=== PATIENT | female | born 1995 | race Caucasian/White ===

== ENCOUNTER 2016-12-08 13:12 | Emergency (ER) | payer BC, OTHER ==
[~2016-12-08] VITALS: Ht 167.6 cm; Wt 55.2 kg
[~2016-12-08 13:12] MED LIST: BCPILLS PO
[2016-12-08 13:18] VITALS: TEMP 37; Ht 167.6 cm; Wt 55.2 kg
--- NOTE | 2016-12-08 13:50 | EMERGENCY ROOM VISIT NOTE ---
ED Visit Note First contact with patient: 13:39 CHIEF COMPLAINT: Right fourth finger injury HISTORY OF PRESENT ILLNESS: This 21-year-old female patient presented to the emergency department ambulatory after they injured the right fourth finger when it got closed in a door last night around 11 PM. There was no audible snap or crack at that time. The patient rates the pain as sharp and 2/10. The patient denies any numbness or tingling. The patient does not have injuries to the wrist. Normal range of motion of the wrist. The patient has not had an injury to this hand before. REVIEW OF SYSTEMS: A 6 system review of systems was completed with positives and pertinent negatives in the HPI. ALLERGIES: Iodinated contrast media MEDICATIONS: Singulair PMH: Asthma and allergies SOCIAL HISTORY: The patient is a student. She does not smoke PHYSICAL EXAM: Vital Signs: Reviewed Nurse's notes, vital signs stable. GENERAL : This is a 21-year-old female, in no acute distress, but appears to be in pain , well-developed, well-nourished. MUSCULOSKELETAL: There is no deformity of the right hand. There is tenderness over the distal right fourth finger. There is no thenar or hypothenar eminence atrophy. Normal thumb opposition to all fingers. Fly Tier strength 5/5. There is a superficial abrasion to the medial nail fold of the right fourth finger but the nail seems to be intact. No tenderness of the hand or wrist. Full range of motion of the wrist. No snuff box tenderness. Radial pulse 2+. I did remove the nail british from the fingernail and did not see any subungual hematoma beneath. NEURO: Alert and oriented to person, place, and time. Normal sensation to light and sharp touch. EMERGENCY DEPARTMENT COURSE: I examined the patient. An x-ray of the right fourth finger was reviewed by myself and radiology and shows no fracture. The patient was placed in a metal splint at her request that due to the discomfort. She should follow up with orthopedics if she does not have any improvement in 5-7 days. She should return sooner with any worsening symptoms. The patient was discharged home in good condition. RIGHT FINGER(S) MIN 2 VIEWS ROUTINE CLINICAL HISTORY: DWAIT - right 4th finger injury Right trauma. Pain. COMPARISON: None. DISCUSSION: The bones and joint spaces appear intact. There is no evidence of fracture, dislocation or bony disease. There is no evidence for soft tissue swelling. IMPRESSION: Negative study. DISCHARGE INSTRUCTIONS: Ice and elevation for 24-48 hrs.Wear the splint when up and about for the next 5 days. Ibuprofen 600 mg every 6 hrs as needed for pain. Follow up with your family doctor or orthopedic surgeon if symptoms persist in 5-7 days. Problem List Medical Problems: (1) Eczema Status: Chronic (2) Pyelonephritis Status: Resolved Current/Historical Medications No Active Prescriptions or Reported Meds Allergies Coded Allergies: Iodinated Diagnostic Agents (Verified Allergy, Unknown, UNKNOWN, 08/07/15) Vital Signs Date Time Temp Pulse Resp B/P Pulse Ox O2 Delivery O2 Flow Rate FiO2 12/08/16 14:51 70 16 125/76 98 12/08/16 13:18 37.0 70 18 128/79 97 Room Air Departure Information Impression Primary Impression: Finger contusion Dispostion Home / Self-Care Condition GOOD Prescriptions No Active Prescriptions or Reported Meds Referrals Mason Aguilar M.D. (PCP) Acosta Dunbar D.O. Patient Instructions ED Contusion Finger, [facility] Additional Instructions Ice and elevation for 24-48 hrs.Wear the splint when up and about for the next 5 days. Ibuprofen 600 mg every 6 hrs as needed for pain. Follow up with your family doctor or orthopedic surgeon if symptoms persist in 5-7 days. Problem Qualifiers Primary Impression: Finger contusion Encounter type: initial encounter Finger: ring finger Damage to nail status : without damage Laterality: right Qualified Codes: S60.041A - Contusion of right ring finger without damage to nail, initial encounter
--- NOTE | 2016-12-08 14:02 | DIAGNOSTIC IMAGING REPORT ---
RIGHT FINGER(S) MIN 2 VIEWS ROUTINE CLINICAL HISTORY: DWAIT - right 4th finger injury Right trauma. Pain. COMPARISON: None. DISCUSSION: The bones and joint spaces appear intact. There is no evidence of fracture, dislocation or bony disease. There is no evidence for soft tissue swelling. IMPRESSION: Negative study. Electronically signed by: Kaden Shetty M.D. 12/08/2016 2:01 PM Dictated Date/Time: 12/08/2016 2:01 PM
[2016-12-08 14:51] VITALS: BP 125/76; PULSE 70; O2SAT 98
== END 2016-12-08 14:53 | disposition home or self-care (01) ==
LOC: C.EDB 13:14 → C.EDD 14:53
DX: S60.041A Contusion of right ring finger without damage to nail, initial encounter (principal); W23.0XXA Caught, crushed, jammed, or pinched between moving objects, initial encounter; J45.909 Unspecified asthma, uncomplicated; L30.9 Dermatitis, unspecified; Z79.899 Other long term (current) drug therapy

== ENCOUNTER 2017-01-02 18:15 | Emergency (ER) | payer BC ==
[~2017-01-02] VITALS: Ht 167.6 cm; Wt 55.8 kg
[2017-01-02 18:23] VITALS: TEMP 36.8; Ht 167.6 cm; Wt 55.8 kg
[2017-01-02] MEDS ORDERED: ALBUT/IPRATROP 3MG/0.5MG NEB 3 ML VIAL INH STA (18:39)
[2017-01-02] MEDS ORDERED: AMXUD2505 PO (19:13)
[2017-01-02] MEDS ORDERED: SNG10 PO (19:13)
[2017-01-02] MEDS ORDERED: CETI10TA84 PO (19:13)
--- NOTE | 2017-01-02 19:15 | DIAGNOSTIC IMAGING REPORT ---
CHEST 2 VIEWS ROUTINE CLINICAL HISTORY: Cough and shortness of breath. COMPARISON STUDY: Chest radiograph April 27, 2013. FINDINGS: Lung volumes are normal. Lungs are clear. There is no pneumothorax or pleural effusion. Cardiac size is normal. Mediastinal contours are normal. There is no evidence of pulmonary edema. IMPRESSION: No acute cardiopulmonary findings. Electronically signed by: Owen Zhang M.D. 01/02/2017 7:12 PM Dictated Date/Time: 01/02/2017 7:12 PM
[2017-01-02] MEDS ORDERED: FLUCONAZOLE 50 MG TAB PO ONE (19:30)
[2017-01-02] MEDS ORDERED: PRED50TA PO (19:59)
[2017-01-02] MEDS ORDERED: FLUC150T PO (19:59)
--- NOTE | 2017-01-02 19:59 | EMERGENCY ROOM VISIT NOTE ---
History First contact with patient: 18:25 Chief Complaint: RESPIRATORY PROBLEMS Stated Complaint: TROUBLE BREATHING Nursing Triage Summary: Triage note: Pt reports "i was dx with strep a couple days ago and i have had a lot of trouble catching my breath for the past 3 days." History of Present Illness The patient is a 21 year old female who presents to the Emergency Room with complaints of trouble catching her breath. The patient reports that she was diagnosed with strep 2 days ago and started on amoxicillin for this. She states that 3 days ago, she noticed it was more difficult than normal to catch her breath. She feels like she is unable to take a full breath. She has a history of asthma but states it is typically well controlled. She has used her inhaler for this without relief. She denies any chest pain. She does not take control pills. She does not smoke and denies any recent long travel. She denies any history or family history of blood clots. The patient states that she feels she has developed a yeast infection since starting the antibiotic. She has had vaginal itchiness and discharge. She denies any abdominal pain, difficulty swallowing, headache or neck pain. Review of Systems A complete 10-point Review of Systems was discussed with the patient, with pertinent positives and negatives listed in the History of Present Illness. All remaining Review of Systems questions can be considered negative unless otherwise specified. Past Medical/Surgical History Medical Problems: (1) Eczema (2) Pyelonephritis Social History Smoking Status: Never Smoker Marital Status: in relationship Occupation Status: [employer] Current/Historical Medications Scheduled Amoxicillin (Amoxicillin), 10 ML PO TID Cetirizine (Zyrtec), 10 MG PO DAILY Fluconazole (Diflucan), 150 MG PO DAILY Montelukast Sod (Montelukast Sodium), 10 MG PO DAILY Prednisone (Prednisone), 50 MG PO DAILY Allergies Coded Allergies: Iodinated Diagnostic Agents (Verified Allergy, Unknown, UNKNOWN, 01/02/17) Physical Exam Vital Signs Date Time Temp Pulse Resp B/P Pulse Ox O2 Delivery O2 Flow Rate FiO2 01/02/17 20:19 63 116/58 98 01/02/17 18:23 36.8 69 18 104/69 95 Room Air Physical Exam VITALS: Vitals are noted on the nurse's note and reviewed by myself. Vital signs stable. GENERAL: This is a 21-year-old female, in no acute distress, nondiaphoretic, well-developed well-nourished. SKIN: The skin was without rashes. EARS: External auditory canals clear, tympanic membranes pearly hooker without erythema or effusion bilaterally. EYES: Pupils equal round and reactive to light and accommodation. MOUTH: Mucous membranes moist. Tonsils are not enlarged. Pharynx minimally erythematous without exudate. NECK: Supple without nuchal rigidity. No lymphadenopathy. HEART: Regular rate and rhythm without murmurs gallops or rubs. LUNGS: Clear to auscultation bilaterally without wheezes, rales or rhonchi. No retractions or accessory muscle use. NEURO: Patient was alert and oriented to person place and time. Medical Decision & Procedures ER Provider Diagnostic Interpretation: CHEST 2 VIEWS ROUTINE CLINICAL HISTORY: Cough and shortness of breath. COMPARISON STUDY: Chest radiograph April 27, 2013. FINDINGS: Lung volumes are normal. Lungs are clear. There is no pneumothorax or pleural effusion. Cardiac size is normal. Mediastinal contours are normal. There is no evidence of pulmonary edema. IMPRESSION: No acute cardiopulmonary findings. Medications Administered Medications (Trade) Dose Ordered Sig/Riya Route Start Time Stop Time Status Last Admin Dose Admin Albuterol/ Ipratropium (Duoneb) 3 ml NOW STAT INH 01/02/17 18:39 01/02/17 18:42 DC 01/02/17 18:46 3 ML Fluconazole (Diflucan Tab) 150 mg NOW ONCE PO 01/02/17 19:30 01/02/17 19:31 DC 01/02/17 19:54 150 MG ED Course The patient was evaluated as above. She declined labs. Patient was medicated with a DuoNeb treatment. Chest x-ray was performed and read by radiology as above. Patient was reevaluated and felt that her breathing was improved after the DuoNeb treatment. He was given Diflucan. Discharge instructions were reviewed with the patient. The patient verbalized understanding of my assessment and treatment plan and was discharged home in good condition. Medical Decision Differential diagnosis includes asthma exacerbation, URI, pneumonia, pulmonary embolism, among others. The patient is a 21-year-old female who presents today complaining of difficulty taking a deep breath. She declined laboratory testing. Chest x-ray was unremarkable. She felt better after a DuoNeb treatment. This may be an exacerbation of her asthma. I did recommend placing her on a steroid and she was agreeable to this. The patient also feels that she may have a yeast infection due to her antibiotic use. She declined pelvic exam. She was treated with Diflucan. She was instructed to follow-up with her primary care provider for further evaluation of any ongoing symptoms. She will return here if her shortness of breath does not improve. Based on the patient's presentation and work up, I feel the patient is stable for outpatient treatment. The patient was educated to the emergency department for any worsening of their current condition or new/concerning symptoms. Impression Primary Impression: Shortness of breath Departure Information Dispostion Home / Self-Care Condition GOOD Prescriptions Prednisone (Prednisone) 50 Mg Tab 50 MG PO DAILY for 4 Days, #44 TAB Prov: Anne Andrade PA-C 01/02/17 Fluconazole (DIFLUCAN) 150 Mg Tab 150 MG PO DAILY, #1 TAB Prov: Anne Andrade PA-C 01/02/17 Referrals Mason Aguilar M.D. (PCP) Patient Instructions [facility] Additional Instructions Prednisone as prescribed. Take this medication in the morning as it may alter your sleep schedule. For pain control, you can use the following [id number] medicines (if >12 yo): - Regular strength (325mg/tab) Tylenol (acetaminophen) 2 tabs every 4-6 hours as needed. Do not exceed 12 tablets in a 24 hour period. Avoid taking more than 4 grams (4000 mg) of Tylenol per day. This includes any other sources of acetaminophen you may take on a regular basis. - Regular strength (200 mg/tab) Advil (ibuprofen) 1-2 tabs every 4-6 hours as needed. Do not exceed a dose of 3200 mg per day. Take the second dose of Diflucan in 3 days if there are still symptoms of a yeast infection. Follow-up with your primary care provider for further evaluation.
[2017-01-02 20:19] VITALS: BP 116/58; PULSE 63; O2SAT 98
== END 2017-01-02 20:10 | disposition home or self-care (01) ==
LOC: C.EDB 18:16 → C.EDA 20:10
DX: R06.02 Shortness of breath (principal); Z87.440 Personal history of urinary (tract) infections; Z91.09 Other allergy status, other than to drugs and biological substances; Z88.1 Allergy status to other antibiotic agents; Z88.8 Allergy status to other drugs, medicaments and biological substances

== ENCOUNTER → 2017-05-27 | Outpatient (CLI) | payer BC ==
[~2017-05-27] MED LIST changes: +AMXUD2505 PO; -BCPILLS PO; +CETI10TA84 PO; +SNG10 PO
[2017-05-30 00:08] LABS: CHLAMYDIA TRACH RNA*** NOT DETECTED (NOT DETECTED); GC (NEIS GONORRHOEAE)RNA** NOT DETECTED (NOT DETECTED)
== END | disposition home or self-care (01) ==
LOC: C.LABBC 11:54
PROVIDERS: ATTEND Internal Medicine
DX: Z00.00 Encounter for general adult medical examination without abnormal findings (principal)